=== PATIENT | female | born 1980 | race Caucasian/White ===

== ENCOUNTER 2018-08-22 04:53 | Emergency (ER) | payer OTHER ==
[~2018-08-22] VITALS: Ht 167.6 cm; Wt 68.0 kg
[~2018-08-22 04:53] MED LIST: PREDNISONE20 MG PO; PREDNISONE50 MG PO; REFRESH LIQUIGE15 ML OP; VALTREX1000 MG PO
[2018-08-22] MEDS ORDERED: ULTRACET PO (05:54)
== END 2018-08-22 06:00 | disposition home or self-care (01) ==
LOC: ER 04:53
DX: S60.042A Contusion of left ring finger without damage to nail, initial encounter (principal); W22.8XXA Striking against or struck by other objects, initial encounter; Y93.89 Activity, other specified; Y92.018 Other place in single-family (private) house as the place of occurrence of the external cause; Y99.8 Other external cause status